=== PATIENT | male | born 1950 | race Caucasian/White ===

== ENCOUNTER 2017-08-29 10:23 | Emergency (ER) | payer MEDICARE, OTHER ==
[~2017-08-29 10:23] MED LIST: Sodium Chloride 0.9% 1,000 ML BAG ONE
[2017-08-29] MEDS ORDERED: Ondansetron HCl/PF 4 MG/2 ML Vial ONE (10:36)
[2017-08-29 11:05] LABS: ALT (SGPT) 36 U/L (8-55); AST (SGOT) 29 U/L (5-34); Albumin 4.2 g/dL (3.4-4.8); Alkaline Phosphatase 90 U/L (40-150); Anion Gap 18 mmol/L (10-20); BUN (Urea Nitrogen) 19 mg/dL (8.4-25.7); Bilirubin, Total 0.6 mg/dL (0.2-1.2); Calc. Creatinine Clearance 0 mL/min (70-130); Calcium 9.9 mg/dL (7.8-10.44); Carbon Dioxide 23 mmol/L (23-31); Chloride 105 mmol/L (98-107); Estimated GFR-MDRD 75; Globulin 2.6 g/dL (2.4-3.5); Glucose 140 mg/dL (80-115); Potassium 3.6 mmol/L (3.5-5.1); Protein, Total 6.8 g/dL (5.8-8.1); Sodium 142 mmol/L (136-145)
[2017-08-29 11:06] LABS: CKMB 2.6 ng/mL (0-6.6); Troponin I 0.023 ng/mL (< 0.028)
[2017-08-29] MEDS ORDERED: Metoclopramide HCl 10 MG/2 ML VIAL ONE (11:26)
--- NOTE | 2017-08-29 11:35 | RAD ---
FRONTAL VIEW CHEST: COMPARISON: No prior comparison. INDICATION: Nausea, vomiting. FINDINGS: Lungs are hypoinflated. There is limited visualization of the left lung base as it is partially obsc ured by cardiac silhouette and due to shallow depth of inspiration. There is prominence of the cardi ac silhouette and pulmonary vasculature. IMPRESSION: 1. Shallow depth of inspiration with obscuration of left lung base. 2. Prominent cardiac silhouette and pulmonary vasculature. This may relate to edema from congestive heart failure in the correct clinical context. Followup imaging with upright 2-view chest would pro ve useful, when clinically feasible. POS: [facility]ARA
--- NOTE | 2017-08-29 11:43 | CT ---
CT OF HEAD NONCONTRAST: INDICATION: Altered mental status. FINDINGS: There is no evidence of intracranial hemorrhage, mass effect, midline shift, or ventriculomegaly. Th ere is patient motion which distorts imaging anatomy and limits the exam. 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 Mild chronic ischemic disease is present. IMPRESSION: No acute intracranial hemorrhage or mass effect. POS: [facility]
[2017-08-29] MEDS ORDERED: Lorazepam 2 MG/ML VIAL ONE (11:48)
[2017-08-29 12:06] LABS: #Basophils 0.1 thou/uL (0.0-0.2); #Eosinphils 0.1 thou/uL (0.0-0.7); #Lymphocytes 2.1 thou/uL (1.20-3.40); #Monocytes 0.7 thou/uL (0.11-0.59); #Neutrophils 4.8 thou/uL (1.40-6.50); %Basophils 1.2 % (0.0-1.0); %Eosinophils 0.7 % (0.0-10.0); %Lymphocytes 26.8 % (21.0-51.0); %Monocytes 9.5 % (0.0-10.0); %Neutrophils 61.8 % (42.0-75.0); Hemoglobin 15.6 g/dL (14.0-18.0); Mean Corpuscular HGB CONC 34.2 g/dL (32.0-36.0); Mean Corpuscular Hemoglobin 31.7 pg (27.0-31.0); Mean Corpuscular Volume 92.7 fL (78.0-98.0); Mean Platelet Volume 6.9 fL (7.4-10.4); Platelet Count 307 thou/uL (130-400); RBC Distribution Width 11.2 % (11.5-14.5); Red Blood Cell (RBC) Count 4.91 mill/uL (4.70-6.10); White Blood Cell (WBC) Count 7.7 thou/uL (4.8-10.8)
[2017-08-29 13:04] LABS: Bilirubin Negative (Negative); Blood, Urine Negative (Negative); Clarity Cloudy (Clear); Glucose, Urine (Dipstick) Negative (Negative); Leukocyte Negative (Negative); Nitrite Negative (Negative); Protein, Urine (Dipstick) Trace mg/dL (Neg-Trace); Urobilinogen 0.2 mg/dL (0.2-1.0); pH, Urine 8.5 (5.0-9.0)
== END 2017-08-29 13:45 | disposition home or self-care (01) ==
LOC: EDBD → MADERS 10:23 → MERGE 10:23 → UNMERGE 10:23 → MADERS 13:45
DX: A08.4 Viral intestinal infection, unspecified (principal); I25.10 Atherosclerotic heart disease of native coronary artery without angina pectoris; I10 Essential (primary) hypertension; F17.220 Nicotine dependence, chewing tobacco, uncomplicated; Z79.899 Other long term (current) drug therapy; Z79.82 Long term (current) use of aspirin
CPT/HCPCS: 70450; 71045; 80053; 81003; 82553; 83605; 83690; 83880; 84484; 85025; 93005; 94760; 96374; 96375; J2060; J2405; J2765; J7050

== ENCOUNTER 2024-12-22 08:38 | Outpatient (CLI) | payer MEDICARE ==
[2024-12-22 09:21] LABS: #Basophils 0.1 thou/uL (0.0-0.2); #Eosinophils 0.1 thou/uL (0.0-0.7); #Lymphocytes 1.7 thou/uL (1.20-3.40); #Monocytes 0.5 thou/uL (0.11-0.59); #Neutrophils 3.0 thou/uL (1.40-6.50); %Basophils 1.7 % (0.0-1.0); %Eosinophils 1.7 % (0.0-10.0); %Lymphocytes 31.5 % (21.0-51.0); %Monocytes 10.0 % (0.0-10.0); %Neutrophils 55.1 % (42.0-75.0); Hematocrit 47.9 % (42.0-52.0); Hemoglobin 15.2 g/dL (14.0-18.0); Mean Corpuscular Hemoglobin 31.7 pg (27.0-31.0); Mean Corpuscular Volume 99.8 fl (78.0-98.0); Platelet Count 253 10x3/uL (130-400); Red Blood Cell (RBC) Count 4.80 mill/uL (4.70-6.10); White Blood Cell (WBC) Count 5.3 10x3/uL (4.8-10.8)
[2024-12-22 09:37] LABS: ALT (SGPT) 22 U/L (Less than 45); AST (SGOT) 23 U/L (11-34); Albumin 4.0 g/dL (3.1-4.5); Alkaline Phosphatase 76 U/L (40-110); Anion Gap 13 mmol/L (10-20); BUN (Urea Nitrogen) 12 mg/dL (8.4-25.7); Bilirubin, Total 0.6 mg/dL (0.3-1.2); Calc. Creatinine Clearance 0 mL/min (70-130); Calcium 8.9 mg/dL (7.8-10.44); Carbon Dioxide 27 mmol/L (23-31); Cardiac Risk 3.8 (Less than 4.5); Chloride 107 mmol/L (98-107); Cholesterol 109 mg/dl (< 200 Desired); Globulin 2.6 g/dL (2.4-3.5); Glucose 113 mg/dL (83-110); HDL Cholesterol 29 mg/dL (>60 Neg Risk); LDL Cholesterol, Calculated 61 mg/dL; Potassium 3.9 mmol/L (3.5-5.1); Sodium 143 mmol/L (136-145); Triglycerides 97 mg/dL (Less than 150)
== END 2024-12-22 08:39 | disposition home or self-care (01) ==
LOC: MADLAB 08:38
PROVIDERS: ATTEND Internal Medicine
DX: Z12.5 Encounter for screening for malignant neoplasm of prostate (principal); I10 Essential (primary) hypertension; I25.10 Atherosclerotic heart disease of native coronary artery without angina pectoris; E78.00 Pure hypercholesterolemia, unspecified; K21.9 Gastro-esophageal reflux disease without esophagitis
CPT/HCPCS: 36415; 80053; 80061; 85025; G0103